=== PATIENT | male | born 1955 | race Caucasian/White ===

== ENCOUNTER 2020-08-05 09:58 | Observation (INO) | payer BC, MEDICARE ==
[~2020-08-05] VITALS: Ht 172.7 cm; Wt 122.5 kg
[2020-08-05 11:10] LABS: HEMOGLOBIN 12.9 gm/dl (14.0-17.5); RED BLOOD COUNT 4.3 M/UL (4.20-5.50); WHITE BLOOD COUNT 13.7 K/UL (4.5-11.0)
[2020-08-05 11:34] LABS: BUN/CREATININE RATIO 16 (0-10)
[2020-08-05] MEDS ORDERED: LINZESS145 MCG PO (15:59)
[2020-08-05] MEDS ORDERED: EFFEXOR XR 150150 MG PO (16:00)
[2020-08-05] MEDS ORDERED: XANAX0.5 MG PO (16:00)
[2020-08-05] MEDS ORDERED: MICARDIS80 MG PO (16:00)
[2020-08-05] MEDS ORDERED: NEURONTIN300 MG PO (16:00)
[2020-08-05] MEDS ORDERED: ZYRTEC10 MG PO (16:01)
[2020-08-05] MEDS ORDERED: OMEPRAZOLE20 MG PO (16:01)
[2020-08-05] MEDS ORDERED: ASPIRIN EC81 MG PO (16:01)
[2020-08-05] MEDS ORDERED: ZANAFLEX4 MG PO (16:02)
[2020-08-05] MEDS ORDERED: ULTRAM50 MG PO (16:02)
[2020-08-06 03:40] LABS: HEMOGLOBIN 11.7 gm/dl (14.0-17.5); RED BLOOD COUNT 3.94 M/UL (4.20-5.50); WHITE BLOOD COUNT 14.2 K/UL (4.5-11.0)
[2020-08-06 04:06] LABS: BUN/CREATININE RATIO 20 (0-10)
[2020-08-07 04:07] LABS: HEMOGLOBIN 11.5 gm/dl (14.0-17.5); RED BLOOD COUNT 3.85 M/UL (4.20-5.50); WHITE BLOOD COUNT 12.1 K/UL (4.5-11.0)
[2020-08-07 04:28] LABS: BUN/CREATININE RATIO 19 (0-10)
[2020-08-07] MEDS ORDERED: LEVOFLOXACIN500 MG PO ×2 (09:14→10:06)
[2020-08-07] MEDS ORDERED: [UNRECOGNIZED DRUG - OTHER] MC (10:13)
== END 2020-08-07 13:17 | disposition home or self-care (01) ==
LOC: ER1 09:58 → M/S 15:39 → CDU 15:39 → M/S 15:39
PROVIDERS: Family Medicine; Physician Assistant; ADMIT Internal Medicine
DX: N30.00 Acute cystitis without hematuria (principal); B96.1 Klebsiella pneumoniae [K. pneumoniae] as the cause of diseases classified elsewhere; D72.829 Elevated white blood cell count, unspecified; E87.1 Hypo-osmolality and hyponatremia; I10 Essential (primary) hypertension; R91.8 Other nonspecific abnormal finding of lung field; F41.9 Anxiety disorder, unspecified; F32.9 Major depressive disorder, single episode, unspecified; Z20.828 Contact with and (suspected) exposure to other viral communicable diseases; Z99.3 Dependence on wheelchair; Z88.0 Allergy status to penicillin; Z79.82 Long term (current) use of aspirin; Z79.899 Other long term (current) drug therapy
CPT/HCPCS: 36415; 70450; 71045; 80048; 80053; 81001; 82550; 82553; 83605; 84484; 85025; 85610; 87040; 87077; 87086; 87186; 96365; 96367; 96376; 99285; G0378; J2185; U0002

== ENCOUNTER 2021-02-01 21:24 | Inpatient (IN) | payer BC, MEDICARE ==
[~2021-02-01] VITALS: Ht 172.7 cm; Wt 122.5 kg
[~2021-02-01 21:24] MED LIST: ASPIRIN EC81 MG PO; EFFEXOR XR 150150 MG PO; LEVOFLOXACIN500 MG PO; LINZESS145 MCG PO; MICARDIS80 MG PO; NEURONTIN300 MG PO; OMEPRAZOLE20 MG PO; ULTRAM50 MG PO; XANAX0.5 MG PO; ZANAFLEX4 MG PO; ZYRTEC10 MG PO; [UNRECOGNIZED DRUG - OTHER] MC
[2021-02-01 22:28] LABS: BUN/CREATININE RATIO 15 (0-10)
[2021-02-01 22:51] LABS: HEMOGLOBIN 12.9 gm/dl (14.0-17.5); RED BLOOD COUNT 4.13 M/UL (4.20-5.50)
[2021-02-02] MEDS ORDERED: LIORESAL TAB 1010 MG PO (02:02)
[2021-02-02] MEDS ORDERED: MIRALAX17 GM PO (02:04)
[2021-02-02] MEDS ORDERED: TYLOPHEN500 MG PO (02:08)
[2021-02-02 04:09] LABS: BUN/CREATININE RATIO 18 (0-10)
[2021-02-02 10:45] LABS: ACINETOBACTER BAUMANNII Not Detected (Negative); CANDIDA ALBICANS Not Detected (Negative); CANDIDA KRUSEI Not Detected (Negative); CANDIDA TROPICALIS Not Detected (Negative); ENTEROCOCCUS Not Detected (Negative); ESCHERICHIA COLI Not Detected (Negative); HAEMOPHILUS INFLUENZAE Not Detected (Negative); KLEBSIELLA OXYTOCA Not Detected (Negative); KPC-CARBAPENEM-RESISTANCE GENE Not Detected (Negative); PROTEUS Not Detected (Negative); PSEUDOMONAS AERUGINOSA Not Detected (Negative); SERRATIA MARCESANS Not Detected (Negative); STREP AGALACTIAE (GROUP B) Not Detected (Negative); STREP PYOGENES (GROUP A) Not Detected (Negative); STREPTOCOCCUS Not Detected (Negative); mecA (METHICILLIN RESIST GENE Not Detected (Negative); vanA/B (VANCOMYCIN RESIST GENE Not Detected (Negative)
[2021-02-02 12:08] LABS: KLEBSIELLA PNEUMONIAE DETECTED (Negative); STAPHYLOCOCCUS DETECTED (Negative); STAPHYLOCOCCUS AUREUS DETECTED (Negative)
[2021-02-03 05:32] LABS: HEMOGLOBIN 10.6 gm/dl (14.0-17.5); RED BLOOD COUNT 3.57 M/UL (4.20-5.50); WHITE BLOOD COUNT 9.3 K/UL (4.5-11.0)
[2021-02-03 05:36] LABS: BUN/CREATININE RATIO 17 (0-10)
[2021-02-04 04:40] LABS: HEMOGLOBIN 10.6 gm/dl (14.0-17.5); RED BLOOD COUNT 3.55 M/UL (4.20-5.50); WHITE BLOOD COUNT 7.3 K/UL (4.5-11.0)
[2021-02-04 04:58] LABS: BUN/CREATININE RATIO 17 (0-10)
[2021-02-05 02:31] LABS: HEMOGLOBIN 10.2 gm/dl (14.0-17.5); RED BLOOD COUNT 3.43 M/UL (4.20-5.50); WHITE BLOOD COUNT 8.4 K/UL (4.5-11.0)
[2021-02-05 02:54] LABS: BUN/CREATININE RATIO 16 (0-10)
[2021-02-06 06:28] LABS: HEMOGLOBIN 9.9 gm/dl (14.0-17.5); RED BLOOD COUNT 3.41 M/UL (4.20-5.50)
[2021-02-06 06:29] LABS: BUN/CREATININE RATIO 13 (0-10)
== END 2021-02-06 20:38 | disposition home health service (06) | DRG 698 ==
LOC: ER1 21:24 → CDU 02-02 01:05 → PROG CARE 02-02 01:05 → MED SURG 4 02-05 17:40
PROVIDERS: Emergency Medicine; Internal Medicine; Physician Assistant Medical; ADMIT Internal Medicine
PROC: B24BZZ4 Ultrasonography of Heart with Aorta, Transesophageal (ICD-10-PCS; principal; 2021-02-03)
DX: T83.518A Infection and inflammatory reaction due to other urinary catheter, initial encounter (principal); R65.20 Severe sepsis without septic shock; A41.01 Sepsis due to Methicillin susceptible Staphylococcus aureus; J96.01 Acute respiratory failure with hypoxia; A41.89 Other specified sepsis; E66.2 Morbid (severe) obesity with alveolar hypoventilation; G82.20 Paraplegia, unspecified; F11.20 Opioid dependence, uncomplicated; Z68.41 Body mass index [BMI] 40.0-44.9, adult; Z20.822 Contact with and (suspected) exposure to COVID-19; N31.9 Neuromuscular dysfunction of bladder, unspecified; B96.1 Klebsiella pneumoniae [K. pneumoniae] as the cause of diseases classified elsewhere; G35 Multiple sclerosis; L89.322 Pressure ulcer of left buttock, stage 2; L89.312 Pressure ulcer of right buttock, stage 2; F41.9 Anxiety disorder, unspecified; F32.9 Major depressive disorder, single episode, unspecified; I10 Essential (primary) hypertension; R73.9 Hyperglycemia, unspecified; G89.4 Chronic pain syndrome; Y84.6 Urinary catheterization as the cause of abnormal reaction of the patient, or of later complication, without mention of misadventure at the time of the procedure; Z88.0 Allergy status to penicillin; Z88.2 Allergy status to sulfonamides; Z90.49 Acquired absence of other specified parts of digestive tract; Y92.89 Other specified places as the place of occurrence of the external cause; Z74.01 Bed confinement status; Z83.3 Family history of diabetes mellitus; Z82.49 Family history of ischemic heart disease and other diseases of the circulatory system; Z79.82 Long term (current) use of aspirin; Z87.440 Personal history of urinary (tract) infections; Z91.19 Patient's noncompliance with other medical treatment and regimen
CPT/HCPCS: ECHO; 36415; 36600; 51702; 71045; 80048; 80053; 80061; 80202; 81001; 82550; 82553; 82803; 83036; 83605; 83690; 83735; 83874; 83880; 84100; 84484; 85025; 85027; 85610; 85730; 87040; 87077; 87086; 87150; 87186; 93005; 93306; 96374; 99284; C1751; J1650; J2185; J2405; J3370; J7030; J7070; U0002

== ENCOUNTER 2021-05-05 20:11 | Emergency (ER) | payer BC, MEDICARE ==
[~2021-05-05 20:11] MED LIST changes: +LIORESAL TAB 1010 MG PO; +MIRALAX17 GM PO; +TYLOPHEN500 MG PO
== END 2021-05-05 22:44 | disposition home or self-care (01) ==
LOC: ER1 20:11
DX: R82.79 Other abnormal findings on microbiological examination of urine (principal); G35 Multiple sclerosis; Z88.1 Allergy status to other antibiotic agents; Z93.6 Other artificial openings of urinary tract status
CPT/HCPCS: 99283; J1335

== ENCOUNTER 2021-07-18 10:54 | Inpatient (IN) | payer MEDICARE, OTHER ==
[~2021-07-18] VITALS: Ht 172.7 cm; Wt 120.2 kg
[2021-07-18 12:33] LABS: HEMOGLOBIN 13.3 gm/dl (14.0-17.5); RED BLOOD COUNT 4.43 M/UL (4.20-5.50); WHITE BLOOD COUNT 7.5 K/UL (4.5-11.0)
[2021-07-18 13:27] LABS: BUN/CREATININE RATIO 29 (0-10)
[2021-07-18] MEDS ORDERED: CYCLOBENZAPRINE10 MG PO (15:33)
[2021-07-18] MEDS ORDERED: FEXOFENADINE-P1 EAC1 PO (15:34)
[2021-07-18] MEDS ORDERED: MACROBID 100 M100 M1 PO (15:35)
[2021-07-18] MEDS ORDERED: ASPIRIN EC81 MG PO (21:24)
[2021-07-19 06:14] LABS: HEMOGLOBIN 12.5 gm/dl (14.0-17.5); RED BLOOD COUNT 4.2 M/UL (4.20-5.50); WHITE BLOOD COUNT 6.6 K/UL (4.5-11.0)
--- NOTE | 2021-07-19 19:01 | NUR ---
pt has been to ct scan today. Dr salgado has notified pt of pt's ams , other orders such as swallow evaluation and labs ordered. has phoned multiple times for updates on pt's status as well as the family deputy fire marshal came to check on him.
[2021-07-20 07:09] LABS: HEMOGLOBIN 12.2 gm/dl (14.0-17.5); RED BLOOD COUNT 4.13 M/UL (4.20-5.50); WHITE BLOOD COUNT 6.1 K/UL (4.5-11.0)
[2021-07-20 07:35] LABS: BUN/CREATININE RATIO 34 (0-10)
[2021-07-21 09:29] LABS: HEMOGLOBIN 12.3 gm/dl (14.0-17.5); RED BLOOD COUNT 4.15 M/UL (4.20-5.50); WHITE BLOOD COUNT 6.8 K/UL (4.5-11.0)
[2021-07-21 09:52] LABS: BUN/CREATININE RATIO 38 (0-10)
--- NOTE | 2021-07-21 18:20 | NUR ---
PATIENT HAD PERIODS OF DE SATTING ON HIS O2 LEVELS ASSOCIATED WIH SLEEP. PATIENT WOULD SLEEP MOUTH OPEN AND BREATH PRIMARILY THROUGH MOUTH CAUSING HIM TO DESAT IN THE 80'S 88-84. TELEMETRY WOULD CALL TO ALERT ABOUT THE DROP AND NURSE WOULD WAKE PATIENT HAVE THEM TAKE SEVERAL DEEP BREATHS THROUGH NOSE AND SATS WOULD IMPROVE. RESPIRATORY WAS ALSO CONSULTED DURING ONE EIPISODE.
[2021-07-22 04:59] LABS: RED BLOOD COUNT 4.09 M/UL (4.20-5.50); WHITE BLOOD COUNT 7.8 K/UL (4.5-11.0)
[2021-07-22 05:37] LABS: BUN/CREATININE RATIO 38 (0-10)
[2021-07-24 10:22] LABS: HEMOGLOBIN 12.8 gm/dl (14.0-17.5); RED BLOOD COUNT 4.29 M/UL (4.20-5.50)
[2021-07-24 10:24] LABS: WHITE BLOOD COUNT 12.6 K/UL (4.5-11.0)
[2021-07-24 10:44] LABS: BUN/CREATININE RATIO 36 (0-10)
[2021-07-25 06:23] LABS: HEMOGLOBIN 11.9 gm/dl (14.0-17.5); RED BLOOD COUNT 4.07 M/UL (4.20-5.50)
[2021-07-25 06:24] LABS: WHITE BLOOD COUNT 9.1 K/UL (4.5-11.0)
[2021-07-25 06:41] LABS: BUN/CREATININE RATIO 30 (0-10)
[2021-07-26 06:24] LABS: BUN/CREATININE RATIO 35 (0-10)
[2021-07-26 07:31] LABS: HEMOGLOBIN 12.1 gm/dl (14.0-17.5); RED BLOOD COUNT 4.21 M/UL (4.20-5.50)
[2021-07-26 07:34] LABS: WHITE BLOOD COUNT 12.1 K/UL (4.5-11.0)
[2021-07-28 04:32] LABS: HEMOGLOBIN 11.8 gm/dl (14.0-17.5); RED BLOOD COUNT 4.08 M/UL (4.20-5.50)
[2021-07-28 04:34] LABS: WHITE BLOOD COUNT 8.1 K/UL (4.5-11.0)
[2021-07-28 04:58] LABS: BUN/CREATININE RATIO 47 (0-10)
[2021-07-30 04:24] LABS: HEMOGLOBIN 13.5 gm/dl (14.0-17.5)
[2021-07-30 04:27] LABS: RED BLOOD COUNT 4.66 M/UL (4.20-5.50); WHITE BLOOD COUNT 10.6 K/UL (4.5-11.0)
[2021-07-30 04:44] LABS: BUN/CREATININE RATIO 41 (0-10)
--- NOTE | 2021-07-30 22:13 | NUR ---
AT THE BEGINNING OF SHIFT, PATIENT SEEMED TO BE CALM AND COOPERATIVE; WEARING BIPAP MASK AND SATS 98%. THEN PATIENT ABRUPTLY PULLED MASK OFF AND STATED HE COULDN'T USE IT ANYMORE AND INSISTED ON AIRVO, WHICH HE TOLERATED WELL FOR A TIME. WAS APPROVED TO STAY WITH PATIENT, SHE IS AT BEDSIDE OF 1914. PATIENT BEGAN TO DISPLAY SIGNS OF ANXIETY AND SATS DROPPED. PATIENT ALSO HAD SLIGHT, GURGLING COUGH. RT ADMINISTERED NEB, PT CONDITION DID NOT IMPROVE SO BIPAP MASK REAPPLIED. PT FOUGHT MASK FOR A TIME BUT FELL ASLEEP AND IS NOW 97%. DR MORGAN HAS BEEN MADE AWARE OF SITUATION AND HAS BEEN COMMUNICATING WITH NURSE REGARDING PATIENT. PT CURRENTLY RESTING IN BED WITH AT BEDSIDE WITH BIPAP ON, CHECK WITH RT FOR SETTINGS.
[2021-07-31 09:35] LABS: HEMOGLOBIN 12.8 gm/dl (14.0-17.5); RED BLOOD COUNT 4.34 M/UL (4.20-5.50); WHITE BLOOD COUNT 18.1 K/UL (4.5-11.0)
[2021-07-31 09:52] LABS: BUN/CREATININE RATIO 46 (0-10)
[2021-08-01 08:23] LABS: RED BLOOD COUNT 4.07 M/UL (4.20-5.50); WHITE BLOOD COUNT 22.5 K/UL (4.5-11.0)
[2021-08-01 08:41] LABS: BUN/CREATININE RATIO 45 (0-10)
[2021-08-01] MEDS ORDERED: ELIQUIS5 MG PO (12:46)
[2021-08-01] MEDS ORDERED: VENLAFAXINE HCL75 M1 PO (12:46)
[2021-08-01] MEDS ORDERED: DECADRON6 MG PO (12:49)
== END 2021-08-01 14:12 | disposition home health service (06) | DRG 871 ==
LOC: ER1 10:54 → MED SURG 4 15:01 → CDU 15:01 → PROG CARE 15:01 → MED SURG 4 19:16 → PROG CARE 07-26 15:40
PROVIDERS: Internal Medicine; Internal Medicine Infectious Disease; Internal Medicine Pulmonary Disease; Nurse Practitioner; Physician Assistant Medical; ADMIT Internal Medicine
PROC: XW033E5 Introduction of Remdesivir Anti-infective into Peripheral Vein, Percutaneous Approach, New Technology Group 5 (ICD-10-PCS; principal; 2021-07-18)
PROC: 8E0ZXY6 Isolation (ICD-10-PCS; 2021-07-18)
PROC: 3E0333Z Introduction of Anti-inflammatory into Peripheral Vein, Percutaneous Approach (ICD-10-PCS; 2021-07-18)
PROC: XW033H5 Introduction of Tocilizumab into Peripheral Vein, Percutaneous Approach, New Technology Group 5 (ICD-10-PCS; 2021-07-26)
PROC: 5A0945A Assistance with Respiratory Ventilation, 24-96 Consecutive Hours, High Flow/Velocity Cannula (ICD-10-PCS; 2021-07-26)
PROC: 5A09357 Assistance with Respiratory Ventilation, Less than 24 Consecutive Hours, Continuous Positive Airway Pressure (ICD-10-PCS; 2021-07-30)
PROC: 5A0935A Assistance with Respiratory Ventilation, Less than 24 Consecutive Hours, High Flow/Velocity Cannula (ICD-10-PCS; 2021-07-31)
DX: A41.01 Sepsis due to Methicillin susceptible Staphylococcus aureus (principal); J15.211 Pneumonia due to Methicillin susceptible Staphylococcus aureus; U07.1 COVID-19; J12.82 Pneumonia due to coronavirus disease 2019; G92.8 Other toxic encephalopathy; J80 Acute respiratory distress syndrome; N30.00 Acute cystitis without hematuria; T83.511A Infection and inflammatory reaction due to indwelling urethral catheter, initial encounter; N17.9 Acute kidney failure, unspecified; G37.3 Acute transverse myelitis in demyelinating disease of central nervous system; G82.20 Paraplegia, unspecified; Z68.41 Body mass index [BMI] 40.0-44.9, adult; F41.9 Anxiety disorder, unspecified; L89.152 Pressure ulcer of sacral region, stage 2; I10 Essential (primary) hypertension; F32.A Depression, unspecified; E66.9 Obesity, unspecified; G89.29 Other chronic pain; B96.5 Pseudomonas (aeruginosa) (mallei) (pseudomallei) as the cause of diseases classified elsewhere; R74.01 Elevation of levels of liver transaminase levels; B96.1 Klebsiella pneumoniae [K. pneumoniae] as the cause of diseases classified elsewhere; D69.6 Thrombocytopenia, unspecified; G35 Multiple sclerosis; F39 Unspecified mood [affective] disorder; Y84.6 Urinary catheterization as the cause of abnormal reaction of the patient, or of later complication, without mention of misadventure at the time of the procedure; E87.5 Hyperkalemia; Z99.81 Dependence on supplemental oxygen; Z87.440 Personal history of urinary (tract) infections; Z90.49 Acquired absence of other specified parts of digestive tract; Z88.0 Allergy status to penicillin; Z23 Encounter for immunization; Z88.2 Allergy status to sulfonamides
CPT/HCPCS: 36415; 36600; 70450; 71045; 80048; 80053; 80202; 81001; 82140; 82550; 82553; 82803; 82962; 83605; 83735; 83874; 83880; 84100; 84484; 85025; 85027; 85379; 85384; 85610; 85730; 86140; 87040; 87077; 87081; 87086; 87186; 92526; 92610; 93005; 93970; 93971; 94640; 94660; 94664; 94760; 96374; 96375; 99285; A6212; J0696; J1100; J1650; J1940; J2060; J2185; J3370; J7030; J7050; J7070; Q9967; U0002